=== PATIENT | male | born 2000 | race Caucasian/White ===

== ENCOUNTER 2024-04-16 08:49 | Outpatient (CLI) | payer OTHER ==
--- NOTE | 2024-04-16 09:45 | Sleep Patient Instructions ---
Sleep Center Visit Summary - Patient Visit Information Reason for Visit: Initial consult for evaluation of sleep disordered breathing and other sleep issues. - Patient Instructions Instructions Attached: Sleep Study Additional Instructions: You will be completing a sleep study, either an in-lab polysomnography (PSG) or home sleep study (HST). You will follow-up in the sleep care office after the sleep study is completed to hear the results and talk about therapy, if needed. You will be called by our office staff to schedule this appointment, but you may contact us with any questions. - Clinic Information Contact: [facility] [address] [place] [address] [email or web address] T: [phone]
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
[2024-04-16 09:49] VITALS: BP 143/83; O2SAT 95
== END 2024-04-16 08:50 | disposition home or self-care (01) ==
LOC: SC 08:49
PROVIDERS: ATTEND Nurse Practitioner Family
DX: R06.83 Snoring (principal); R06.81 Apnea, not elsewhere classified; G47.8 Other sleep disorders; R41.89 Other symptoms and signs involving cognitive functions and awareness; G47.10 Hypersomnia, unspecified; E66.01 Morbid (severe) obesity due to excess calories; Z68.41 Body mass index [BMI] 40.0-44.9, adult
CPT/HCPCS: 99203; 99212

== ENCOUNTER 2024-05-20 23:40 | Outpatient (CLI) | payer OTHER | END 2024-05-20 23:41 | disposition home or self-care (01) | LOC: SC 23:40 | PROVIDERS: ATTEND Nurse Practitioner Family | DX: R06.83 Snoring (principal); G47.10 Hypersomnia, unspecified; G47.8 Other sleep disorders; E66.9 Obesity, unspecified; R06.81 Apnea, not elsewhere classified | CPT/HCPCS: 95810 ==

== ENCOUNTER 2024-05-29 08:46 | Outpatient (CLI) | payer OTHER ==
--- NOTE | 2024-05-29 09:29 | Sleep Patient Instructions ---
Sleep Center Visit Summary - Patient Visit Information Reason for Visit: Sleep study follow-up - Patient Instructions Instructions Attached: Sleep Study Home Monitor Additional Instructions: Your sleep study today was negative for significant sleep disordered breathing. However, we did not get you on your sides. You were found to have episodes of snoring. There are different ways to control snoring including weight loss, oral devices made by a dentist or surgical options through ENT specialist. You should not use oral devices that do not fit properly because they can affect your bite. You should also check insurance coverage of oral devices for snoring because they may not be cover well. You may obtain a referral to an ENT specialist through your primary provider. You will be completing a home sleep study (HST). You will follow-up in the sleep care office after the sleep study is completed to hear the results and talk about therapy, if needed. You will be called by our office staff to schedule this appointment, but you may contact us with any questions - Clinic Information Contact: [facility] [address] [place] [address] [email or web address] T: [phone]
--- NOTE | 2024-05-29 09:33 | SLEEP CARE CONSULTATION ---
Information from patient questionnaire entered by Ilir Bell. I have reviewed and concur with the information entered by Ilir Bell. This document represents the service I personally performed and the decisions made by , Kaleigh Jo ARNP. History of Present Illness Service Date and Time: 05/29/2024 0846 Initial [place] Sleepiness Scale score: 11 (04/16/24) Current [place] Sleepiness Scale score: 11 (05/29/24) Additional HPI information: ALEXI PATEL returns for follow up and results of the recently performed polysomnography on 05/20/2024. The patient was informed of the following findings: No significant sleep disord ered breathing with an average AHI of 2 and kelsie oxygen saturation of 87%. He only slept supine. I explained the pathophysiology behind obstructive sleep apnea. Patient does not have sleep apnea and was advised how weight gain could increase the risk of developing sleep apnea in the future. I strongly encouraged the patient to lose weight. Patient has moderate snoring. Snoring can be reduced by weight loss. Weight loss is best achieved with diet consult. Patient instructed to contact PCP for referral. Snoring can also be treated with an oral appliance from a dentist. Advised to check insurance coverage. In addition, an ENT evaluation can be do to see if other treatment is indicated. Patient counseled not drink alcohol less than 4 hours before bedtime as it can increase snoring and apnea. Patient was cautioned about risks of drowsy driving until sleepiness symptoms resolve. Patient denies drowsy driving. Sleep Study - Results Prior sleep studies: No Polysomnography/Home Sleep Study results: IMPRESSION: The quality of the study is good. The patient had normal sleep efficiency. The sleep architecture was relatively also normal considering the first-night effect. Respiratory monitoring showed no significant sleep disordered breathing (AHI = 2.0) or hypoxia (kelsie oxygen saturation of 87% and only 0.4% of the total sleep time was spent with oxygen saturation below 90%). Few respiratory events occurred mainly during REM sleep. The patient only slept supine during this study (supine AHI = 2.0; non-supine = 0.00). Snore was light to loud in intensity. There was no significant periodic leg movement of sleep. Cardiac rhythm was normal sinus rhythm without significant arrhythmia. No abnormal behavior (parasomnia) observed during the night. Allergies and Home Medications Known drug allergies: No Drug allergies reviewed: Yes Home medication list reviewed: Yes (trazodone, zoloft) Allergy and home medication list: Allergies No Known Drug Allergies Allergy (Verified 04/16/24 09:09) Review of Systems Review of systems same as previous: No (PTSD) Physical Exam Vital signs obtained and entered by: Kaleigh Mcintyre NP Blood Pressure: 144/76 Cuff size: long (right arm) Heart Rate: 61 O2 Saturation: 97 Height: 6 ft 3.5 in Weight: 338 lb 12.8 oz Body Mass Index: 41.8 BMI Classification: Morbidly Obese Impression and Plan 1. Snoring but no significant sleep disordered breathing. Patient advised that often weight loss will reduce snoring as well as apnea risk. An oral appliance can also be used for snoring. This would require a dental consultation. Patient cautioned not to use other online appliances as can cause bite issues. Patient is advised to check if insurance will cover. An ENT consult can also be helpful to determine if any other treatment is an option. Patient feels it was not a good representation since he was unable to sleep on his side and that is where he normally sleeps at home. He has excessive sleepiness during the day, has to take a nap to make it through his day, he is snoring loudly and his has noted pauses in breathing at home. I suspect that he could have more respiratory events when side sleeping and would like to evaluate for this through an HST. I recommend proceeding to polysomnography to confirm the diagnosis and to assess severity. I obtained agreement to proceed. The pathophysiology of obstructive sleep apnea-hypopnea syndrome was discussed with the patient and health risks of cardiovascular and cerebrovascular disease if not treated. Risks of drowsy driving discussed in detail and patient advised to avoid long distance driving and to char puller at the first sign of drowsiness. Patient agreed to plan. 2. Obesity, unspecified. Currently patients BMI is 41.8. Obesity increases the risk of apnea, CPAP pressure requirements and overall health risks especially cardiovascular and diabetes. Thus patient is advised to lose weight. * Schedule polysomnography * Avoid long distance driving or driving when feeling sleepy. * Avoid alcohol, sedative and muscle relaxant around bedtime. * Attempt to lose weight. * Review instructions provided by trained office staff on how to prepare for the sleep study. * Return for follow-up after sleep study completed. Counseling Topics: Weight loss health impact Visit Type: In Office Time Spent with Patient (minutes): 20 Provider Statement: I spent 100% of the Face to Face Visit with the patient with greater than 50% spent counseling the patient and coordination of care.
[2024-05-29 09:38] VITALS: BP 144/76; O2SAT 97
== END 2024-05-29 08:47 | disposition home or self-care (01) ==
LOC: SC 08:46
PROVIDERS: ATTEND Nurse Practitioner Family
DX: R06.83 Snoring (principal); E66.01 Morbid (severe) obesity due to excess calories; Z68.41 Body mass index [BMI] 40.0-44.9, adult
CPT/HCPCS: 99212; 99213